=== PATIENT | male | born 1960 | race Caucasian/White ===

== ENCOUNTER 2016-07-25 09:48 | Day surgery (SDC) | payer BC, MEDICARE ==
[~2016-07-25 09:48] MED LIST: ALEVE220 M1 PO; AMOXICILLIN; BUDEPRION SR150 MG PO; BUPROPION HCL150 M3 PO; DULCOLAX10 MG/SUPP RC; ERY-TAB500 MG; FISH OIL 1,2001 CAP PO; FISH OIL 1,2001 EAC5 PO; FLEXERIL10 MG PO; FLOMAX0.4 MG PO; GABAPENTIN600 MG PO; GABAPENTIN800 M2 PO; GABAPENTIN800 MG PO; LIPITOR40 M1 PO; LIPITOR40 MG PO; MEDROL4 MG/DOSE- PO; MEN'S MULTI-VI1 EACH PO; MILK OF MAGNESIA PO; MULTIVITAMIN1 TAB; NEURONTIN400 MG PO; NORCO 5/3251 TA1 PO; NUCYNTA50 MG PO; OMEPRAZOLE20 M2 PO; OMEPRAZOLE40 M2 PO; OMEPRAZOLE40 MG PO; PERCOCET 5/3251 TAB PO; PRAVACHOL40 MG PO; PRILOSEC20 MG; SENOKOT-S TABLE1 TAB PO; TOBRADEX OP; TYLENOL325 M1 PO; TYLENOL325 MG PO; VIIBRYD40 M1 PO; VITAMIN C1000 MG; ZOCOR20 MG; ZOCOR40 MG; ZOFRAN ODT4 MG/UDTAB PO; ZOLOFT100 MG
[2016-07-26] MEDS ORDERED: ROXICODONE5 M2 PO (08:43)
[2016-07-26] MEDS ORDERED: ULTRAM50 M1 PO (08:44)
== END 2016-07-26 09:40 ==
LOC: SRG 09:48 → SHSA 09:49 → ORE 12:33 → PACU 16:47 → 5EB 17:50
PROC: 0LQ14ZZ Repair Right Shoulder Tendon, Percutaneous Endoscopic Approach (ICD-10-PCS; principal; 2016-07-25)
PROC: 0RNJ4ZZ Release Right Shoulder Joint, Percutaneous Endoscopic Approach (ICD-10-PCS; 2016-07-25)
DX: S46.011A Strain of muscle(s) and tendon(s) of the rotator cuff of right shoulder, initial encounter (principal); E78.5 Hyperlipidemia, unspecified; F41.9 Anxiety disorder, unspecified; F32.9 Major depressive disorder, single episode, unspecified; K21.9 Gastro-esophageal reflux disease without esophagitis; M15.9 Polyosteoarthritis, unspecified; M10.9 Gout, unspecified; E66.9 Obesity, unspecified; Z68.30 Body mass index [BMI] 30.0-30.9, adult; Z87.891 Personal history of nicotine dependence; Z88.5 Allergy status to narcotic agent; Z88.8 Allergy status to other drugs, medicaments and biological substances; X58.XXXA Exposure to other specified factors, initial encounter; Z79.899 Other long term (current) drug therapy; Z98.890 Other specified postprocedural states
CPT/HCPCS: C1713; G8978-GP-CH; G8979-GP-CH; G8980-GP-CH; J0690; J2250; J3010